=== PATIENT | female | born 1990 | race African-American/Black ===

== ENCOUNTER 2020-05-11 06:34 | Inpatient (IN) ==
[2020-05-11] MEDS ORDERED: PITOCIN ONE (06:42)
[2020-05-11] MEDS ORDERED: D5LR 1L W PITOCIN 10 UNITS/L 10 UNITS/1,000 ML BAG IV ONE (06:42)
[2020-05-11] MEDS ORDERED: D5 1/2 NS 1000 ML 1,000 ML IV ONE (06:42)
[2020-05-11] MEDS ORDERED: BETADINE SOLN ONE (06:42)
[2020-05-11] MEDS ORDERED: D5 1/2 NS 1L W PITOCIN 20 UNITS/L 20 UNITS/1,000 ML BAG IV ONE (06:42)
[2020-05-11] MEDS ORDERED: AMPICILLIN VIAL 2 GRAM ONE (06:43)
[2020-05-11] MEDS ORDERED: LR 1000 ML IV 1,000 ML IV ONE (06:43)
[2020-05-11] MEDS ORDERED: NS 100 ML IV 100 ML IV ONE ×2 (06:43→10:39)
[2020-05-11] MEDS: AMPICILLIN VIAL 1 GRAM 1 G in NS 50 ML IV + SPIKE MINIBAG* 50 ML IV SCH ×2 (07:00→11:35)
--- NOTE | 2020-05-11 07:14 | DR.OB ---
OB Quick Note - Assessment/Plan Assessment/Plan: L&D 05/11/20 at 7:05am S-No complaint. O-Afebrile,VSS ODF=235 with good LTV, +accel, no decel. CTX=none CVX=2cm/50%/0/VTX AROM with clear fluid. IUPC and FSE placed. A-IUP at 39 2/7 weeks for induction +GBS GERD P-Begin pitocin induction IV ABX in labor Anticipate
[2020-05-11] MEDS ORDERED: REGLAN INJ 10 MG VIAL IVP PRN (07:25)
[2020-05-11] MEDS ORDERED: D5LR 1L W PITOCIN 10 UNITS/L 10 UNITS/1,000 ML BAG IV PRN (07:25)
[2020-05-11] MEDS ORDERED: NUBAIN INJ 200 MG VIAL MULTIDOSE IVP PRN (07:25)
[2020-05-11] MEDS ORDERED: D5 1/2 NS 1000 ML 1,000 ML IV SCH (07:25)
[2020-05-11] MEDS ORDERED: PHENERGAN INJ 25 MG IM PRN ×2 (07:25→12:36)
[2020-05-11] MEDS ORDERED: MORPHINE SULFATE INJ 2 MG INJ IVP PRN (07:25)
[2020-05-11] MEDS ORDERED: PITOCIN IVP ONE (07:25)
[2020-05-11] MEDS ORDERED: AMPICILLIN VIAL 2 GRAM 2 G in NS 100 ML IV + SPIKE MINIBAG* 100 ML IV SCH (07:25)
[2020-05-11] MEDS ORDERED: STADOL INJ IVP PRN (07:26)
[2020-05-11] MEDS: VSL#3 PO SCH ×2 (09:16→18:20)
[2020-05-11] MEDS ORDERED: STADOL INJ ONE (10:33)
[2020-05-11] MEDS ORDERED: AMPICILLIN VIAL 1 GRAM ONE (10:39)
--- NOTE | 2020-05-11 12:02 | DR.OB ---
OB Quick Note - Assessment/Plan Assessment/Plan: L&D 05/11/20 at 11:55am Pitocin=14mu/min. Ampicillin S-No complaint except CTX. O-Afebrile,VSS CVX=7cm/75%/0 CTX=q 1 1/2 to 2min., about 55-75mmHg ANI=356 with good LTV, +accel, no decel. A-IUP at 39 2/7 weeks for induction +GBS GERD P-Cont. pitocin induction/ABX in labor Anticipate
[2020-05-11] MEDS ORDERED: MOTRIN TAB 800 MG PO PRN (12:36)
--- NOTE | 2020-05-11 12:36 | DR.OB ---
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 Head delivered over intact perineum. No nuchal cord. Nose and mouth bulb suctioned. Body delivered over intact perineum. Cord clamped x 2 and cut. handed to attendant. Cord sent for gases. Placenta delivered spontaneously / intact / 3 vessel cord. No CVX / vaginal / perineal tears noted. Viable female , VTX/OA, wt=6'13" and 9/10, stable to NBN. Mother stable to RR. PSP=[id number].
[2020-05-11] MEDS ORDERED: DERMOPLAST PAIN RELIEF SPRAY TOP PRN (13:37)
[2020-05-11] MEDS ORDERED: MILK OF MAGNESIA PO PRN (13:37)
[2020-05-11] MEDS ORDERED: AMBIEN PO PRN (13:37)
[2020-05-11] MEDS ORDERED: ADACEL or BOOSTRIX TDaP VACCINE IM ONE (13:37)
[2020-05-11] MEDS: D5 1/2 NS 1000 ML 1,000 ML with PITOCIN 20 UNITS IV SCH ×4 (18:21→21:45)
[2020-05-12 05:08] LABS: HEMATOCRIT 23.7 % (36.0-47.0)
[2020-05-12] MEDS: D5 1/2 NS 1000 ML 1,000 ML with PITOCIN 20 UNITS IV SCH ×2 (05:09)
[2020-05-12 05:16] LABS: HEMOGLOBIN 7.9 g/dL (12.0-16.0)
[2020-05-12] MEDS ORDERED: DEPO-PROVERA CONTRACEPTIVE INJ IM ONE (07:24)
[2020-05-12] MEDS ORDERED: PROTONIX TAB 40 MG PO SCH (09:00)
[2020-05-12] MEDS ORDERED: PRENATAL PLUS PO SCH (09:00)
[2020-05-12 13:50] VITALS: BP 98/51
[2020-05-12] MEDS ORDERED: FERROUS GLUCONATE PO SCH (17:00)
== END 2020-05-12 14:40 | disposition home or self-care (01) | DRG 807 ==
LOC: LD 06:34 → OBS 13:48
PROVIDERS: ADMIT Specialist; ATTEND Specialist

== ENCOUNTER 2024-02-14 15:36 | Inpatient (IN) ==
[2024-02-14] MEDS ORDERED: PITOCIN IVP ONE (15:51)
[2024-02-14] MEDS ORDERED: REGLAN INJ 10 MG VIAL IVP PRN (15:51)
[2024-02-14] MEDS ORDERED: ZOFRAN INJ 4 MG VIAL IVP PRN (15:51)
[2024-02-14] MEDS ORDERED: NUBAIN INJ 20 MG AMP IVP PRN (15:51)
[2024-02-14] MEDS: D5 1/2 NS 1,000 ML 1,000 ML IV SCH (16:00)
[2024-02-14] MEDS: AMPICILLIN VIAL 2 GRAM 2 G in NS 100 ML IV 100 ML IV ONE (16:10)
[2024-02-14 16:34] LABS: MONOCYTES # (AUTO) 0.9 x10^3/uL (0.3-0.8)
[2024-02-14 16:37] LABS: BASOPHILS % (AUTO) 0.4 % (0.2-1.0); EOSINOPHILS # (AUTO) 0.2 x10^3/uL (0.0-0.2); EOSINOPHILS % (AUTO) 1.5 % (0.9-2.9); HEMATOCRIT 29.7 % (36.0-47.0); HEMOGLOBIN 10.1 g/dL (12.0-16.0); LYMPHOCYTES # (AUTO) 1.5 X10^3/uL (1.3-2.9); LYMPHOCYTES % (AUTO) 12.6 % (21.0-51.0); MEAN CORPUSCULAR HGB CONC 34.1 g/dL (33.0-35.0); MEAN CORPUSCULAR VOLUME 88.1 fL (80.0-100.0); MEAN PLATELET VOLUME 8.2 fL (7.4-11.0); MONOCYTES % (AUTO) 7.7 % (0.0-13.0); NEUTROPHILS # (AUTO) 9.3 x10^3/uL (2.2-4.8); NEUTROPHILS % (AUTO) 77.8 % (42.0-75.0); PLATELET COUNT 335 X10^3/uL (150.0-450.0); RED BLOOD COUNT 3.38 X10^6/uL (3.5-5.4)
[2024-02-14 16:40] LABS: BLOOD UREA NITROGEN 3 mg/dL (7-18); CARBON DIOXIDE 24.4 mmol/L (21-32); CHLORIDE 104 mmol/L (98-107); CREATININE 0.74 mg/dL (0.55-1.02); GLUCOSE 110 mg/dL (65-99); POTASSIUM 3.6 mmol/L (3.5-5.1); SODIUM 138 mmol/L (136-145); eGFR NON BLACK RACES > 60 (>60)
[2024-02-14] MEDS: OXYTOCIN 20 UNIT/1,000 ML-NS 20 UNIT/1,000 ML PLAST..BAG IV PRN (16:45)
[2024-02-14 16:59] LABS: RAPID PLASMA REAGIN NONREACTIVE (NONREACTIVE)
--- NOTE | 2024-02-14 17:00 | US ---
EXAM: OB GREATER THAN 14 WEEKS LIMIT HISTORY: 35 WK OB, IN LABOR, WATER BROKEN; COMPARISON: None. TECHNIQUE: Grayscale, color-flow, and Doppler images FINDINGS: There is a single living intrauterine gestation in cephalic presentation with heart rate documented a t 136 beats per minute. The placenta is posterior and there is no previa. The amniotic fluid volume is low and not measurable. Three-vessel cord and four-chamber view of the heart are noted. BPD 36 weeks 5 days Head circumference 35 weeks 0 days Abdominal circumference 31 weeks 3 days Femur length 32 weeks 5 days Estimated gestational age 34 weeks 0 days Estimated delivery date 03/27/2024 Estimated weight 2018 g (4 pounds 7 ounces) plus/-3 L3 g (11 ounces) weight percentile 3% based on the menstrual history IMPRESSION: 1. Living gestation in cephalic presentation. 2. Very low amniotic fluid volume. 3. Decreased abdominal circumference suggests intrauterine growth restriction. 4. Low weight corresponds with intrauterine growth restriction. THIS IS AN ELECTRONICALLY VERIFIED FINAL REPORT 02/14/2024 4:57 PM - Electronically signed by Al Paul MD
[2024-02-14 17:47] LABS: BILIRUBIN,URINE NEGATIVE (NEGATIVE); BLOOD/HEMOGLOBIN,URINE 1+ (NEGATIVE); GLUCOSE, URINE NEGATIVE (NEGATIVE); KETONES,URINE NEGATIVE (NEGATIVE); LEUKOCYTE ESTERASE ,URINE 2+ (NEGATIVE); NITRITES,URINE NEGATIVE (NEGATIVE); PROTEIN,URINE NEGATIVE (NEGATIVE); UROBILINOGEN,URINE NORMAL (NORMAL)
[2024-02-14 17:49] LABS: APPEARANCE,URINE SLIGHTLY HAZY (CLEAR); COLOR,URINE PALE YELLOW (YELLOW)
[2024-02-14 18:01] LABS: BACTERIA,URINE TRACE /HPF (NEGATIVE); RBC,URINE 0-2 /HPF (0-3); SQUAMOUS EPITHELIAL CELL,UR FEW /HPF (NEGATIVE)
[2024-02-14] MEDS: AMPICILLIN VIAL 1 GRAM 1 G in NS 50 ML IV + SPIKE MINIBAG* 50 ML IV SCH (20:00)
--- NOTE | 2024-02-14 20:23 | DR.OB ---
OB QUICK NOTE Assessment/Plan (1) Active labor at term: Assessment/Plan: L&D 02/14/24 at 8:15pm Pitocin=14mu/min. Ampicillin S-No complaint except CTX. O-Afebrile,VSS PQD=777 with good LTV, +accel, mild variables, occasional deep variables. CTX=q 1 1/2 to 2 min., about 35-55mmHg CVX=5cm/75%/-1/VTX A-IUP at 35 4/7 weeks with SROM Unknown GBS P-Cont. pitocin induction Cont. ABX in labor Anticipate
--- NOTE | 2024-02-14 20:52 | DR.OB ---
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 Head delivered over intact perineum. No nuchal cord. Compound presentation with right hand to face. Nose and mouth bulb suctioned. Body delivered over intact perineum. Cord clamped x 2 and cut. handed to attendant. Cord sent for gases. Placenta delivered spontaneously / intact / 3 vessel cord. No CVX / vaginal / perineal tears. Viable male infant delivered by , VTX/OA, wt=5'11" and 8/9, stable to NBN. Mother stable to RR. [id number].
[2024-02-14] MEDS ORDERED: DERMOPLAST PAIN RELIEF SPRAY TOP PRN (21:18)
[2024-02-14] MEDS ORDERED: MOTRIN TAB 800 MG PO PRN (21:18)
[2024-02-14] MEDS ORDERED: MILK OF MAGNESIA PO PRN (21:18)
[2024-02-14] MEDS ORDERED: AMBIEN PO PRN (21:18)
[2024-02-15] MEDS: ADACEL or BOOSTRIX TDaP VACCINE IM ONE (05:06)
[2024-02-15] MEDS: OXYTOCIN 20 UNIT/1,000 ML-NS 20 UNIT/1,000 ML PLAST..BAG IV SCH (05:07)
[2024-02-15 05:47] LABS: HEMATOCRIT 30.6 % (36.0-47.0); HEMOGLOBIN 10.5 g/dL (12.0-16.0)
[2024-02-15] MEDS: PRENATAL PLUS PO SCH (08:20)
[2024-02-15] MEDS: MOTRIN TAB 800 MG PO PRN (17:08)
[2024-02-16 08:08] VITALS: RESP 21; O2SAT 97
[2024-02-16] MEDS: DEPO-PROVERA CONTRACEPTIVE INJ IM ONE (10:13)
[2024-02-16 13:00] VITALS: BP 104/60; PULSE 75; TEMP 98
== END 2024-02-16 13:10 | disposition home or self-care (01) | DRG 807 ==
LOC: ER 15:36 → LD 15:52 → MED/SURG 22:18
PROVIDERS: ADMIT Specialist; ATTEND Specialist
DX: O60.14X0 Preterm labor third trimester with preterm delivery third trimester, not applicable or unspecified; Z3A.35 35 weeks gestation of pregnancy; Z37.0 Single live birth